=== PATIENT | female | born 1990 | race Caucasian/White ===

== ENCOUNTER 2017-03-16 13:18 | Emergency (ER) | payer MEDICAID ==
[~2017-03-16] VITALS: Ht 170.2 cm; Wt 90.3 kg
[2017-03-16 13:26] VITALS: BP 125/80
== END 2017-03-16 13:43 | disposition home or self-care (01) ==
LOC: ED 13:18
DX: J02.9 Acute pharyngitis, unspecified (principal)

== ENCOUNTER 2017-10-04 01:20 | Emergency (ER) | payer MEDICAID ==
[~2017-10-04] VITALS: Ht 170.2 cm; Wt 90.3 kg
[2017-10-04 01:41] VITALS: BP 138/92; Ht 170.2 cm; Wt 90.3 kg
== END 2017-10-04 05:07 | disposition left against medical advice (07) ==
LOC: ED 01:20
DX: Z53.21 Procedure and treatment not carried out due to patient leaving prior to being seen by health care provider (principal)

== ENCOUNTER 2017-11-06 22:22 | Emergency (ER) | payer MEDICAID ==
[2017-11-07 00:01] VITALS: BP 114/78
== END 2017-11-07 00:01 | disposition home or self-care (01) ==
LOC: ED 22:22
DX: M62.838 Other muscle spasm (principal)

== ENCOUNTER 2017-12-16 13:17 | Emergency (ER) | payer MEDICAID ==
[~2017-12-16] VITALS: Ht 170.2 cm; Wt 91.2 kg
[2017-12-16 13:24] VITALS: Ht 170.2 cm; Wt 91.2 kg
[2017-12-16 18:53] VITALS: BP 130/68
== END 2017-12-16 18:25 | disposition home or self-care (01) ==
LOC: ED 13:17
DX: R42 Dizziness and giddiness (principal); K21.9 Gastro-esophageal reflux disease without esophagitis
CPT/HCPCS: J8597; Q0162

== ENCOUNTER 2018-03-29 15:51 | Emergency (ER) | payer MEDICAID ==
[~2018-03-29] VITALS: Ht 170.2 cm; Wt 94.3 kg
[2018-03-29 16:14] VITALS: BP 127/87
== END 2018-03-29 16:41 | disposition home or self-care (01) ==
LOC: ED 15:51
DX: J40 Bronchitis, not specified as acute or chronic (principal); J03.90 Acute tonsillitis, unspecified; H92.01 Otalgia, right ear; I10 Essential (primary) hypertension; Z90.89 Acquired absence of other organs

== ENCOUNTER 2018-04-29 20:55 | Emergency (ER) | payer MEDICAID ==
[~2018-04-29] VITALS: Ht 170.2 cm; Wt 93.9 kg
[2018-04-29 21:09] VITALS: Ht 170.2 cm; Wt 93.9 kg
[2018-04-30 00:12] LABS: BASOPHIL % 0.6 % (0-2); PLATELET COUNT 316 x10^3mcL (130-400); RED CELL DISTRIBUTION WIDTH 13.2 % (11.5-14.5)
[2018-04-30 00:20] LABS: CALCIUM 9.2 mg/dL (8.5-10.1); CARBON DIOXIDE 26.8 mmol/L (21-32); CHLORIDE SERUM 103 mmol/L (98-107); CREATININE SERUM 0.7 mg/dL (0.6-1.0); GFR1 > 60 mL/min; GLUCOSE SERUM 91 mg/dL (74-106); POTASSIUM SERUM 3.7 mmol/L (3.5-5.1); SODIUM SERUM 135 mmol/L (136-145)
[2018-04-30 00:32] LABS: ALBUMIN 4.3 g/dL (3.4-5.0); ALKALINE PHOSPHATASE 98 U/L (46-116); ALT/SGPT 82 U/L (14-59); AST/SGOT 41 U/L (15-37); BILIRUBIN TOTAL 0.8 mg/dL (0.20-1.00); LIPASE 166 IU/L (73-393); TOTAL PROTEIN, SERUM 8.8 g/dL (6.4-8.2)
[2018-04-30 00:44] VITALS: BP 115/79
== END 2018-04-30 00:44 | disposition home or self-care (01) ==
LOC: ED 20:55
PROVIDERS: Emergency Medicine
DX: R51 Headache (principal); R11.0 Nausea; Z90.09 Acquired absence of other part of head and neck
CPT/HCPCS: 36415

== ENCOUNTER 2019-05-03 14:55 | Emergency (ER) | payer MEDICAID ==
[~2019-05-03] VITALS: Ht 170.2 cm; Wt 94.3 kg
[2019-05-03 15:00] VITALS: BP 133/92; Ht 170.2 cm; Wt 94.3 kg
== END 2019-05-03 15:57 | disposition home or self-care (01) ==
LOC: ED 14:55
DX: J03.91 Acute recurrent tonsillitis, unspecified (principal); G43.909 Migraine, unspecified, not intractable, without status migrainosus

== ENCOUNTER 2019-07-26 12:05 | Emergency (ER) | payer MEDICAID ==
[~2019-07-26] VITALS: Ht 170.2 cm; Wt 93.4 kg
[2019-07-26 12:21] VITALS: Ht 170.2 cm; Wt 93.4 kg
[2019-07-26 13:46] VITALS: BP 111/72
== END 2019-07-26 13:46 | disposition home or self-care (01) ==
LOC: ED 12:05
DX: R30.0 Dysuria (principal); R35.0 Frequency of micturition; R11.0 Nausea; R68.83 Chills (without fever); E66.9 Obesity, unspecified; G43.909 Migraine, unspecified, not intractable, without status migrainosus; Z90.89 Acquired absence of other organs; Z68.32 Body mass index [BMI] 32.0-32.9, adult
CPT/HCPCS: 82962

== ENCOUNTER 2019-09-03 17:48 | Emergency (ER) | payer MEDICAID ==
[~2019-09-03] VITALS: Ht 170.2 cm; Wt 96.2 kg
[2019-09-03 18:02] VITALS: Ht 170.2 cm; Wt 96.2 kg
[2019-09-03 20:33] VITALS: BP 132/87
== END 2019-09-03 20:34 | disposition home or self-care (01) ==
LOC: ED 17:48
DX: N39.0 Urinary tract infection, site not specified (principal); Z90.89 Acquired absence of other organs; G43.909 Migraine, unspecified, not intractable, without status migrainosus
CPT/HCPCS: J0696; J1885; Q0162

== ENCOUNTER 2019-10-12 18:39 | Emergency (ER) | payer MEDICAID ==
[~2019-10-12] VITALS: Ht 170.2 cm; Wt 98.0 kg
[2019-10-12 19:22] VITALS: Ht 170.2 cm; Wt 98.0 kg
[2019-10-12 21:01] VITALS: BP 139/89
== END 2019-10-12 21:01 | disposition home or self-care (01) ==
LOC: ED 18:39
DX: J02.0 Streptococcal pharyngitis (principal); G43.909 Migraine, unspecified, not intractable, without status migrainosus; Z90.89 Acquired absence of other organs
CPT/HCPCS: J0561; J1885